=== PATIENT | female | born 1980 | race Caucasian/White ===

== ENCOUNTER 2018-08-20 08:47 | Observation (INO) ==
[2018-08-20] MEDS ORDERED: Regadenoson Inj 0.4 MG/5 ML Syringe IV.PUSH ONE (13:03)
[2018-08-20 13:59] LABS: Creatine Kinase 68 U/L (26-192)
--- NOTE | 2018-08-20 14:02 | P.HPIM ---
History of Present Illness Service: Hospitalist Primary Care Physician: Ricky Faith Chief Complaint: Chest pain History of Present Illness: Ms. Boudreaux is a very pleasant 38-year-old female with a history of kidney stone status post ureteral stent placement as well as lithotripsy who presents to the emergency department in [place] due to chest discomfort. At around 7:30 AM on 08/21/2018 patient started rinsing achy substernal chest discomfort which later became sharp. Her chest discomfort lasted about 1 minute but had repeated occurrence. She felt somewhat sore in her chest. She also was short of breath. She had some neck spasm during her chest discomfort. She denies any nausea vomiting or diaphoresis. She denies any cough, abdominal pain. Denies any changes in bowel or bladder habits. Past medical history: Kidney stone status post lithotripsy and ureteral stents Past surgical history: No significant surgeries in the past. Social history: Patient denies using tobacco, alcohol, illicit drugs. Family history: Father is 57 and has 6 cardiac stents. He has a history of premature coronary artery disease. Patient's on also has a history of coronary artery disease. Review of Systems Review of Systems: all other systems reviewed are negative [facility] Social History Social History Substance History: No History of Abuse Second Hand Smoke Exposure: No Smoking Status: Never smoker How Often Do You Have a Drink Containing Alcohol: Monthly or less Medications and Allergies Allergies Allergy/AdvReac Type Severity Reaction Status Date / Time No Known Allergies Allergy Verified 06/06/18 09:43 Home Medications Medication Instructions Recorded Confirmed Type No Known Home Medications 08/20/18 08/20/18 History Active Medications: Active Medications Albuterol (Albuterol Neb (Prn)) 2.5 mg NEB UNSCH PRN PRN Reason: SHORTNESS OF BREATH/WHEEZING Albuterol (Duoneb Neb (Prn)) 1 ampul NEB UNSCH PRN PRN Reason: SHORTNESS OF BREATH/WHEEZING Sodium Chloride (Ns Flush) 2 ml IV.FLUSH BID ARIANNE Sodium Chloride (Ns Flush) 2 ml IV.FLUSH PRN PRN PRN Reason: FLUSH AFTER USING IV ACCESS Physical Exam Narrative: GENERAL: This is a well-nourished, well-developed patient, in no apparent distress. SKIN: No rashes, ecchymoses or lesions. Warm and dry. HEAD: Atraumatic. Normocephalic. No temporal or scalp tenderness. EYES: Pupils equal round and reactive. No injection or drainage. ENT: Nose without bleeding, purulent drainage or septal hematoma. Airway patent. NECK: Trachea midline. No lymphadenopathy. Supple, nontender, no meningeal signs. CARDIOVASCULAR: Regular rate and rhythm without murmurs, gallops, or rubs. No JVD. Mild discomfort on palpation in the mid chest area. RESPIRATORY: Clear to auscultation. Breath sounds equal bilaterally. No wheezes , rales, or rhonchi. GASTROINTESTINAL: Abdomen soft, non-tender, nondistended. No guarding. MUSCULOSKELETAL: Extremities without clubbing, cyanosis, or edema. NEUROLOGICAL: Awake and alert. Cranial nerves II through XII intact. No focal neurological deficits. Normal speech. Caprini VTE Risk Assessment Caprini VTE Risk Assessment: No/Low Risk (score <= 1) Caprini Risk Assessment Model: Point Value = 1 Point Value = 2 Point Value = 3 Point Value = 5 Age 41-60 Minor surgery BMI > 25 kg/m2 Swollen legs Varicose veins or History of unexplained or recurrent spontaneous Oral contraceptives or hormone replacement Sepsis (< 1 month) Serious lung disease, including pneumonia (< 1 month) Abnormal pulmonary function Acute myocardial infarction Congestive heart failure (< 1 month) History of inflammatory bowel disease Medical patient at bed rest Age 61-74 Arthroscopic surgery Major open surgery (> 45 min) Laparoscopic surgery (> 45 min) Malignancy Confined to bed (> 72 hours) Immobilizing plaster cast Central venous access Age >= 75 History of VTE Family history of VTE Factor V Leiden Prothrombin [id number] Lupus anticoagulant Anticardiolipin antibodies Elevated serum homocysteine Heparin-induced thrombocytopenia Other congenital or acquired thrombophilia Stroke (< 1 month) Elective arthroplasty Hip, pelvis, or leg fracture Acute spinal cord injury (< 1 month) Prophylaxis Regimen: Total Risk Factor Score Risk Level Prophylaxis Regimen 0-1 Low Early ambulation 2 Moderate Order ONE of the following: *Sequential Compression Device (SCD) *Heparin 5000 units SQ BID 3-4 Higher Order ONE of the following medications: *Heparin 5000 units SQ TID *Enoxaparin/Lovenox 40 mg SQ daily (WT < 150 kg, CrCl > 30 mL/min) *Enoxaparin/Lovenox 30 mg SQ daily (WT < 150 kg, CrCl > 10-29 mL/min) *Enoxaparin/Lovenox 30 mg SQ BID (WT < 150 kg, CrCl > 30 mL/min) AND/OR *Sequential Compression Device (SCD) 5 or more Highest Order ONE of the following medications: *Heparin 5000 units SQ TID (Preferred with Epidurals) *Enoxaparin/Lovenox 40 mg SQ daily (WT < 150 kg, CrCl > 30 mL/min) *Enoxaparin/Lovenox 30 mg SQ daily (WT < 150 kg, CrCl > 10-29 mL/min) *Enoxaparin/Lovenox 30 mg SQ BID (WT < 150 kg, CrCl > 30 mL/min) AND *Sequential Compression Device (SCD) Assessment and Plan Plan Ms. Boudreaux is a pleasant 38-year-old female with a history of kidney stone who presents to the emergency department in [place] on 08/20/2018 due to substernal chest discomfort with probable radiation to her neck. She had some shortness of breath but no nausea or vomiting or diaphoresis. Initial troponin 0 0.02. Chest pain Initial troponin was 0.02. Will repeat troponins x2 Due to timing issues, patient will likely undergo Lexiscan study tomorrow 2018. Continue cardiac diet and n.p.o. midnight. Continue aspirin 81 mg daily, will check lipid profile in the morning Kidney stone Status post lithotripsy and ureteral stent placement. No acute issues. Full code. Ambulation. Likely discharge in the morning after Lexiscan is completed. H&P: Quality VTE Deep Vein Thrombosis/Pulmonary Embolism Present on Admission: No
[2018-08-20] MEDS ORDERED: Acetaminophen 325 MG Tablet PO PRN (16:17)
[2018-08-20 17:33] LABS: Creatine Kinase 61 U/L (26-192)
[2018-08-21 10:09] LABS: Chol/HDL Ratio 4.75 Ratio; HDL Cholesterol 52.6 mg/dL (40.0-60.0)
--- NOTE | 2018-08-21 10:11 | NM ---
EXAM DATE: 08/21/2018 10:00 AM EST AGE/SEX: 38 years / Female INDICATIONS:Angina. . Mid chest pain for one day. CLINICAL DATA: This is the patient's initial encounter. Patient reports that signs and symptoms have been present for 1 day and indicates a pain score of 4/10. MEDICAL/SURGICAL HISTORY: None. None. COMPARISON: No prior exams available for comparison. No external comparison. DOSE: 8.8 mCi Tc 99m Myoview at rest 26.4 mCi [id number] at stress 0.4 mg Lexiscan STRESS SYMPTOMS: Headache with shortness of breath. EJECTION FRACTION: 58 % TECHNIQUE: The patient underwent pharmacologic stress with infusion of prescribed dose. Continuous ECG tracing was monitored during stress. Gated SPECT imaging was performed after stress and conventi onal SPECT imaging was performed at rest. The examination was performed on a SPECT/CT scanner, both attenuation and non-corrected datasets were reviewed. FINDINGS: Distribution: The maximum perfused segment at stress is in the lateral wall. Perfusion Study: The pattern of perfusion at stress is within normal limits with regional variation s perfusion within 25%. No evidence of redistribution. Gated Study: There are intact wall motion and wall thickening without hypokinetic or dyskinetic segm ents. The ejection fraction is calculated at 58%. RISK CATEGORY: Low (<1% Annual Mortality Rate) CONCLUSION: 1. No evidence of stress-induced ischemia. 2. Intact wall motion with 58% ejection fraction. Electronically signed by: Enrique Walker MD Board Certified Radiologist 08/21/2018 10:10 AM EST
--- NOTE | 2018-08-21 10:19 | P.PNIM ---
Subjective Interval history: 11-year-old female who is seen examined today for follow-up on chest pain. Patient denies any recurrent chest pain. Vital signs still show 1 elevated blood pressure, however it has improved from yesterday. Patient remains afebrile. Physical Exam Vital signs: Vital Signs 08/20/18 16:00 08/20/18 20:00 08/20/18 20:30 Temperature 98.3 F 96.8 F L Pulse Rate 77 70 Respiratory Rate 20 18 Blood Pressure 160/89 H 157/91 H Pulse Oximetry 97 97 97 08/21/18 00:00 08/21/18 03:56 08/21/18 08:37 Temperature 97.0 F L 97.4 F L 96.6 F L Pulse Rate 69 65 72 Respiratory Rate 18 18 16 Blood Pressure 155/87 H 142/76 H 166/103 H Pulse Oximetry 98 96 8 L Intake & Output 08/20/18 08/21/18 08/21/18 18:59 06:59 18:59 Intake Total 480 / 480 200 / 200 Output Total 400 / 400 Balance 80 / 80 200 / 200 Weight 88.5 kg Intake: Oral 480 / 480 Oral Supplement 200 / 200 Output: Urine 400 / 400 Other: # Voids 2 Narrative: GENERAL: Well-developed, well-nourished, in no acute distress. alert and orientated HEENT: Head is normocephalic without any lesions or masses noted. Facial features are symmetric. Eyes: Extraocular muscles are intact. Conjunctivae were clear. NECK: Supple without any masses. Trachea midline no deviation. No JVD, CARDIAC: Regular rhythm, regular rate. S1/S2 are heard. No murmurs gallops or rubs. LUNGS: Clear to auscultation bilaterally. No wheeze, rhonchi or rales. No use of accessory muscles on inspiration or expiration. ABDOMEN: Soft, nontender. Nondistended. Bowel sounds heard in all 4 quadrants. No organomegaly or masses. Negative rebound, negative guarding EXTREMITIES: No edema, pulses are equal bilaterally. No cyanosis or clubbing NEUROLOGY: Mood and affect appear appropriate. Cranial nerves II through XII grossly intact. Moving all extremities, speech is clear Results Imaging Imaging: Impressions Myocardial Perfusion Scan Nuc Med 08/21/18 00:00 CONCLUSION: 1. No evidence of stress-induced ischemia. 2. Intact wall motion with 58% ejection fraction. Assessment and Plan Plan Chest pain, atypical Patient with risk factors indicating family history of heart disease Patient was ruled out for acute coronary event with serial cardiac enzymes that were negative Serial EKGs reviewed by myself which indicated normal sinus rhythm without any changes Patient did undergo myocardial perfusion study which was unremarkable for any ischemia. Low risk Patient will continue on aspirin, nitroglycerin as needed Elevated blood pressure with hypertensive urgency on presentation Blood pressure improved after medications given Patient will be started on Norvasc 5 mg daily Constipation she will need to follow-up with her biomedical doctor for continued monitoring Patient should keep a blood pressure diary Hyperlipidemia Lipid panel does indicate LDL of 151 Patient counseled on lifestyle modifications Patient continue with lifestyle modifications and follow-up with her primary medical doctor for further evaluations prior to administration of medications DVT prevention Low risk, early ambulation Discussed Condition With: Patient, family at bedside, nursing staff, Dr. Rust Discharge Planning: Discharge home in stable condition Activity: Ad kalani. Diet: Healthy heart diet Medication per medication reconciliation Follow-up with primary medical doctor in 1 week Progress Note: Quality VTE Deep Vein Thrombosis/Pulmonary Embolism Present on Admission: No
--- NOTE | 2018-08-21 12:41 | ECG ---
Date Performed: 08/20/2018 Time Performed: 15:43:55 PTAGE: 38 years EKG: Sinus rhythm WITH SINUS ARRHYTHMIA MINIMAL VOLTAGE CRITERIA FOR LVH, CONSIDER NORMAL VARIANT NONSPECIFIC T-WAVE A BNORMALITY BORDERLINE ECG PREVIOUS TRACING : 08/20/2018 13.15 DOCTOR: Schuyler Bailey Interpretating Date/Time 08/21/2018 12:32:12
--- NOTE | 2018-08-21 12:47 | ECG ---
Date Performed: 08/20/2018 Time Performed: 13:15:58 PTAGE: 38 years EKG: Sinus rhythm WITH SINUS ARRHYTHMIA MODERATE VOLTAGE CRITERIA FOR LVH, CONSIDER NORMAL VARIANT NONSPECIFIC T-WAVE ABNORMALITY BORDERLINE ECG NO PREVIOUS TRACING DOCTOR: Schuyler Bailey Interpretating Date/Time 08/21/2018 12:39:13
== END 2018-08-21 11:33 | disposition home or self-care (01) ==
LOC: PHEDDLT 08:47 → PH3 08:47
PROVIDERS: ADMIT Hospitalist; ATTEND Hospitalist
DX: Z82.49 Family history of ischemic heart disease and other diseases of the circulatory system; R07.89 Other chest pain; Z79.82 Long term (current) use of aspirin; I16.0 Hypertensive urgency; K59.00 Constipation, unspecified; Z87.442 Personal history of urinary calculi; E78.5 Hyperlipidemia, unspecified; R94.31 Abnormal electrocardiogram [ECG] [EKG]
CPT/HCPCS: 71010; 71045; 78452; 80053; 80061; 82550; 83520; 83735; 83880; 84484; 85025; 85379; 90774; 90784; 93005; 93017; 96374; 99291; A9502; C8952; G0378; J2785